=== PATIENT | male | born 1975 | race Caucasian/White ===

== ENCOUNTER 2024-01-18 12:05 | Outpatient (CLI) | payer BC, SELFPAY ==
[2024-01-18 19:13] LABS: Alanine Aminotransferase 56 U/L (12-78); Albumin Level 4.4 g/dl (3.5-5.0); Albumin/Globulin Ratio 1.5 (1.1-1.8); Alkaline Phosphatase 61 U/L (38-126); Aspartate Amino Transferase 44 U/L (17-59); Bilirubin,Total 0.8 mg/dl (0.2-1.3); Blood Urea Nitrogen 21 mg/dl (9-20); Calcium 9.4 mg/dl (8.4-10.2); Carbon Dioxide 25 mmol/L (22.0-30.0); Chloride 110 mmol/L (98-107); Chol/HDL Ratio 10.1 (1-3.5); Cholesterol 293 mg/dl (140-200); Estimated Glomerular Filt Rate 72 ml/min (>60); GFR (African American) 87 ML/MIN (>60); Globulin 2.9 g/dL (1.3-3.2); Glucose 102 mg/dl (74-100); HDL Cholesterol 29 mg/dl (40-60); Sodium 141 mmol/L (136-145); Total Protein,Serum 7.3 g/dl (6.3-8.2)
[2024-01-18 19:16] LABS: Triglycerides 463 mg/dl (30-150)
[2024-01-18 19:23] LABS: Direct LDL Cholesterol 168.46 mg/dL (100-129)
== END 2024-01-18 23:59 | disposition home or self-care (01) ==
LOC: LAB.DROPOF 01-21 12:08
PROVIDERS: PCP Family Medicine; Visit Provider Family Medicine
DX: K76.9 Liver disease, unspecified (principal)
CPT/HCPCS: 80053; 80061